=== PATIENT | female | born 1970 | race Native Hawaiian/Other Pacific Islander ===

== ENCOUNTER 2020-12-27 10:08 | Outpatient (CLI) | payer BC | END 2020-12-27 19:17 | disposition home or self-care (01) | LOC: MAMMO 10:08 | PROVIDERS: ATTEND Physician Assistant | DX: F41.9 Anxiety disorder, unspecified (principal); I10 Essential (primary) hypertension; Z12.31 Encounter for screening mammogram for malignant neoplasm of breast ==